=== PATIENT | male | born 1995 | race Caucasian/White ===

== ENCOUNTER 2025-07-25 15:25 | Emergency (ER) | payer OTHER ==
[~2025-07-25] VITALS: Ht 180.3 cm; Wt 86.2 kg
--- NOTE | 2025-07-25 15:39 | ERN ---
ED Note History of Present Illness Stated Complaint: GROIN PAIN Chief Complaint: Groin Pain Time Seen by MD: 15:30 Dictation: PATIENT IS A 29-YEAR-OLD MALE COMING IN TODAY WITH COMPLAINTS OF HAVING BILATERAL TESTICULAR PAIN, SCROTAL PAIN WITH TENDERNESS TO HIS SCROTUM FOR ONE WEEK. STATES IT STARTED WHEN HE HAD UNPROTECTED SEX WITH A PARTNER HE WAS NOT REALLY WELL-KNOWN WITH. HE STATES HE HAS NOT BEEN HAVING PAINFUL EJACULATION OR DYSURIA. STATES HE SAW HIS PRIMARY CARE DOCTOR THREE DAYS AGO AND WAS TOLD HE WILL BE SENT TO A MOISTURE METER OPERATOR FOR FURTHER EVALUATION AND TESTING. HE STATES HE IS NOT ASKED HIS PARTNER IF SHE IS HAVING ANY PROBLEMS SINCE THE ENCOUNTER. Past Medical History Past Medical History: No Pertinent History Surgical History: None RN Note Reviewed/Agreed w/PFSH: Yes Review of System Dictation CONSTITUTIONAL: NEGATIVE EXCEPT FOR HPI HEAD/FACE: NEGATIVE EXCEPT FOR HPI EENT: NEGATIVE EXCEPT FOR HPI RESPIRATORY: NEGATIVE EXCEPT FOR HPI GASTROINTESTINAL/ABDOMINAL: NEGATIVE EXCEPT FOR HPI GENITOURINARY: NEGATIVE EXCEPT FOR HPI DYSURIA WITH WITH SCROTAL PAIN AND TESTICULAR PAIN. BILATERALLY ONE WEEK MUSCULOSKELETAL: NEGATIVE EXCEPT FOR HPI INTEGUMENTARY: NEGATIVE EXCEPT FOR HPI NEUROLOGICAL/PSYCH: NEGATIVE EXCEPT FOR HPI HEMATOLOGIC/LYMPHATIC: NEGATIVE EXCEPT FOR HPI ALL SYSTEMS NEGATIVE, EXCEPT NOTED ABOVE. 13 POINT REVIEW OF SYSTEMS ASSESSED AND ALL NEGATIVE EXCEPT FOR ABOVE. Initial Vital Sign VS Vital Signs Date Time Temp Pulse Resp B/P (MAP) Pulse Ox O2 Delivery O2 Flow Rate FiO2 07/25/25 15:28 98.1 62 16 131/74 100 Room Air 0 07/25/25 15:31 21 Physical Exam Dictation VITAL SIGNS REVIEWED GENERAL APPEARANCE: ALERT, ORIENTED X 3, NO ACUTE DISTRESS, WELL DEVELOPED, NOURISHED. HIS PAIN AT THIS TIME. HEAD AND FACE: NON-TRAUMATIC. EYES: PERRL, PINK CONJUNCTIVAS, EYELID NO TRAUMA, ANTERIOR CHAMBER WITH ARCUS SENILIS. EARS: PINNAS INTACT AND NO SIGNS OF TRAUMA OR ERYTHEMA EAR CANALS CLEAR AND NO DISCHARGE TM NO ERYTHEMA NOSE: NO DISCHARGE, NO BLEEDING. OROPHARYNX: MOUTH NORMAL, TONGUE PINK, PHARYNX CLEAR,NO ERYTHEMA, TONSILS NO EXUDATES, NO ABSCESSES NOTED, MUCOUS MEMBRANE MOIST NECK: SUPPLE, NON-TENDER, NO THYROMEGALY, NO MASSES, NO JVD, NO BRUITS BREAST:DEFERRED CHEST:NO TENDERNESS, NO CREPITUS, NO PARADOXICAL MOVEMENT, NO RETRACTIONS LUNGS:CLEAR, WELL-VENTILATED, SYMMETRIC, NO RALES, NO WHEEZING, NO RHONCHI, NO STRIDOR, GOOD BREATH SOUNDS BILATERALLY HEART: REGULAR RATE, REGULAR RHYTHM, NO MURMUR, NO GALLOPS VASCULAR: NO PERIPHERAL EDEMA, ABDOMEN: SOFT, POSITIVE BOWEL SOUNDS, NONDISTENDED, NO GUARDING, NONTENDER, NO REBOUND, NO MASSES NO HEPATOMEGALY, NO SPLENOMEGALY, NO CORDOVA'S SIGN, NO HERNIAS. RECTAL: DEFERRED GENITAL: BILATERAL SCROTUM WITH MILD ERYTHEMA. NO LESIONS. PATIENT IS CIRCUMCISED, BILATERAL TESTICLES ARE DESCENDED. POSITIVE CREMASTERIC REFLEX BILATERALLY NO DISCHARGE NEUROLOGICAL: NORMAL SPEECH, MOTOR FUNCTION INTACT, SENSORY FUNCTION INTACT MUSCULOSKELETAL: NECK NONTENDER, FULL RANGE OF MOTION, BACK NONTENDER, FULL RANGE OF MOTION, EXTREMITIES: NONTENDER, FULL RANGE OF MOTION SKIN: COLOR PINK, DRY, NO TURGOR, NO RASH, NO LACERATIONS, NO ABRASIONS, NO CONTUSIONS. LYMPHATIC: DEFERRED Results (Laboratory/Radiology) Laboratory/Radiology Laboratory Tests Test 07/25/25 15:38 07/25/25 16:07 Urine Color LIGHT-YELLOW (YELLOW) Urine Appearance CLEAR (CLEAR) Urine pH 5.0 (5.0-8.0) Urine Specific [place] 1.009 (1.001-1.031) Urine Protein NEGATIVE mg/dL (NEGATIVE) Urine Glucose (UA) NEGATIVE mg/dL (NEGATIVE) Urine Ketones NEGATIVE mg/dL (NEGATIVE) Urine Occult Blood NEGATIVE (NEGATIVE) Urine Nitrate NEGATIVE (NEGATIVE) Urine Bilirubin NEGATIVE mg/dL (NEGATIVE) Urine Urobilinogen 0.2 mg/dL (0.2-1.0) Urine Leukocyte Esterase NEGATIVE Bree/uL White Blood Count 3.5 K/uL (4.8-10.8) L Red Blood Count 4.89 MIL/uL (4.50-6.20) Hemoglobin 13.9 g/dL (14.0-18.0) L Hematocrit 40.5 % (42-54) L Mean Corpuscular Volume 82.8 fL (79-99) Mean Corpuscular Hemoglobin 28.4 pg (27.0-33.0) Mean Corpuscular Hemoglobin Concent 34.3 g/dL (32.0-36.0) Red Cell Distribution Width 12.2 % (11.0-15.5) Platelet Count 207 K/uL (130-400) Mean Platelet Volume 9.3 fL (7.5-10.5) Immature Granulocyte % (Auto) 0.3 % (0-1) Neutrophils (%) (Auto) 63.6 % (40.0-77.0) Lymphocytes (%) (Auto) 29.4 % (21.0-51.0) Monocytes (%) (Auto) 5.6 % (3.0-13.0) Eosinophils (%) (Auto) 0.8 % (0.0-8.0) Basophils (%) (Auto) 0.3 % (0.0-5.0) Neutrophils # (Auto) 2.3 K/uL (1.8-7.7) Lymphocytes # (Auto) 1.0 K/uL (1.0-4.8) Monocytes # (Auto) 0.2 K/uL (0.1-1.0) Eosinophils # (Auto) 0.03 K/uL (0.00-0.70) Basophils # (Auto) 0.01 K/uL (0.00-0.20) Absolute Immature Granulocyte (auto 0.01 K/uL (0-1) Nucleated Red Blood Cells 0.0 % (0.0-0.19) Sodium Level 140 mmol/L (136-145) Potassium Level 4.3 mmol/L (3.5-5.1) Chloride Level 101 mmol/L (101-111) Carbon Dioxide Level 33 mmol/L (21-32) H Blood Urea Nitrogen 16 mg/dL (7-18) Creatinine 0.9 mg/dL (0.5-1.3) Glomerular Filtration Rate Calc 120 mL/min (>90) Random Glucose 103 mg/dL (70-105) Total Calcium 9.1 mg/dL (8.5-10.1) Labs Reviewed?: Yes ED Course ED Course Orders Procedure Category Date Status Time Us Scrotum & Contents US 07/25/25 Taken 15:36 Chlamydia & Gc Pcr KENDELL 07/25/25 Logged 15:36 Urinalysis Profile LAB 07/25/25 Complete 15:36 Cbc With Differential LAB 07/25/25 Complete 15:36 Basic Metabolic Panel LAB 07/25/25 Complete 15:36 Vital Signs Date Time Temp Pulse Resp B/P (MAP) Pulse Ox O2 Delivery O2 Flow Rate FiO2 07/25/25 15:31 98.1 62 16 131/74 100 Room Air* 0 21 07/25/25 15:28 98.1 62 16 131/74 100 Room Air 0 1655/PATIENT NEEDED TO LEAVE FOR A FAMILY EMERGENCY HE IS AWARE THAT LABS AND ULTRASOUND OR BACK NO READING ON THE ULTRASOUND BUT HE SAID HE WILL COME BACK TOMORROW. Medical Decision Making MDM MEDICAL DISCHARGE MAKING BASED ON BASIC LABS AND ULTRASOUND FOR TESTICULAR PAIN. NO READING ON ULTRASOUND IT PATIENT NEEDED TO LEAVE FOR FAMILY EMERGENCY. HE HAS BEEN MADE AWARE HE COME BACK FOR THE MEDICAL RECORDS FOR THE RESULTS. DX & DISP Disposition: Discharge Departure Impression: Primary Impression: Possible exposure to STD Additional Impression: Dysuria Condition: Stable Additional Instructions: FOLLOW-UP WITH PRIMARY CARE PROVIDER IN 1 TO 2 DAYS. TAKE MEDICATIONS DIRECTED HERE IN THE EMERGENCY ROOM. OKAY TO CONTINUE HOME MEDICATIONS UNLESS OTHERWISE DISCUSSED DURING YOUR VISIT IN THE EMERGENCY ROOM TODAY. RETURN TO YOUR NEAREST EMERGENCY ROOM IF SYMPTOMS WORSEN OR IF THERE IS NO IMPROVEMENT. CALL 911 IF YOU NEED IMMEDIATE ASSISTANCE. TAKE TYLENOL OR MOTRIN OVER-THE- COUNTER NEEDED AND IF NO CONTRAINDICATIONS ARE PRESENT. INCREASE ORAL HYDRATION. A WOUND CULTURE OR URINE CULTURE WAS ORDERED HERE IN THE EMERGENCY ROOM DEPARTMENT PLEASE FOLLOW-UP WITH PRIMARY CARE PROVIDER AND ADVISE THEM TO GET REPEAT PORTS FROM OUR FACILITY. IF YOU HAD ANY CICI WRAP/SPLINTS THAT WERE APPLIED HERE, PLEASE DO NOT REMOVE THEM UNTIL YOU SEE YOUR PRIMARY CARE OR SPECIALTY. FOLLOW UP WITH MEDICAL RECORDS FOR YOUR LABS AND ULTRASOUND REPORT. FOLLOW UP WITH [facility] OR YOUR DOCTOR FOR EVALUATION AND TREATMENT. Referrals: SELF,REFERRAL (PCP) Time of Disposition: 16:56 I have reviewed the case, and I agree with, Diagnosis and Plan FLAKO HEALY NP Jul 25, 2025 15:39
[2025-07-25 15:49] LABS: APPEARANCE,URINE CLEAR (CLEAR); GLUCOSE, URINE (UA) NEGATIVE (NEGATIVE); LEUKOCYTE ESTERASE ,URINE NEGATIVE Leu/uL (NEGATIVE); NITRATE,URINE NEGATIVE (NEGATIVE); OCCULT BLOOD,URINE NEGATIVE (NEGATIVE)
[2025-07-25 16:02] LABS: ADD UA MICROSCOPIC NO
[2025-07-25 16:24] LABS: IMMATURE GRANULOCYTE ABSOLUTE 0.01 K/uL (0-1); NUCLEATED RED BLOOD CELLS 0.0 % (0.0-0.19); PLATELET COUNT (AUTO) 207 K/uL (130-400); RED BLOOD CELL COUNT(AUTO) 4.89 MIL/uL (4.50-6.20); RED CELL DISTRIBUTION WIDTH 12.2 % (11.0-15.5); WHITE BLOOD COUNT (AUTO) 3.5 K/uL (4.8-10.8)
[2025-07-25 16:37] LABS: CREATININE 0.9 mg/dL (0.5-1.3); GLOMERULAR FILTR. RATE CALC 120.0 mL/min (>90); GLUCOSE,RANDOM 103.0 mg/dL (70-105); SODIUM SERUM 140.0 mmol/L (136-145); UREA NITROGEN, BLOOD 16.0 mg/dL (7-18)
[2025-07-25 16:56] VITALS: BP 130/70; PULSE 60; RESP 16; TEMP 98.1; O2SAT 100
--- NOTE | 2025-07-25 18:11 | HMCIMG ---
EXAM: US Scrotum. CLINICAL HISTORY: Bilateral testicular pain for one week. TECHNIQUE: Real-time ultrasound of the scrotum with color Doppler and image documentation. COMPARISON: None provided. FINDINGS: RIGHT TESTICLE: Normal in size and echogenicity. No abnormal mass. Mildly increased vascularity throughout the testis. Few microcalcifications are seen. LEFT TESTICLE: Normal in size and echogenicity. No abnormal mass. Mildly increased vascularity throughout the testis. EPIDIDYMIDES: Within normal limits in size. Mild increased vascularity is seen bilaterally. SCROTUM: Minimal bilateral hydrocele. No varicocele or extratesticular mass is seen. Unremarkable otherwise.IMPRESSION: 1. Bilateral testicular and epididymal hyperemia, possibly related to orchitis or epididymitis. 2. Minimal bilateral hydrocele. /Ancram
== END 2025-07-25 17:02 | disposition home or self-care (01) ==
LOC: EDH 15:25
DX: R30.0 Dysuria (principal)
CPT/HCPCS: 36415; 76870; 80048; 81003; 85025; 87491; 87591; 99284